=== PATIENT | male | born 1990 | race African-American/Black ===

== ENCOUNTER 2016-07-01 08:31 | Emergency (ER) | payer BC ==
[2016-07-01 08:40] VITALS: BP 127/72; PULSE 76; RESP 16; TEMP 98.1; O2SAT 97
--- NOTE | 2016-07-01 08:52 | EDPHY ---
H & P Stated Complaint: N/V/D since this AM Time Seen by Provider: 07/01/16 08:46 HPI/ROS: CHIEF COMPLAINT: Nausea, vomiting, diarrhea HISTORY OF PRESENT ILLNESS: Patient presents to the ED with a 1 day history of nausea, vomiting and diarrhea. The patient denies significant abdominal pain. The patient denies significant past medical history. The patient denies any antibiotic use or travel outside the [place]. He believes he may have eaten some bad [place] food last night. The patient has no additional complaints of an upper respiratory infection, dysuria or rash. REVIEW OF SYSTEMS: A comprehensive 10 point review of systems is otherwise negative aside from elements mentioned in the history of present illness. Source: Patient Exam Limitations: No limitations - Personal History Current Tetanus/Diphtheria Vaccine: Yes Current Tetanus Diphtheria and Acellular Pertussis (TDAP): Yes - Medical/Surgical History Hx Asthma: Yes Hx Chronic Respiratory Disease: No Hx Diabetes: No Hx Cardiac Disease: No Hx Renal Disease: No Hx Cirrhosis: No Hx Alcoholism: No Hx HIV/AIDS: No Hx Splenectomy or Spleen Trauma: No Other PMH: denies - Social History Smoking Status: Never smoked - Physical Exam Exam: General Appearance: Alert, no distress Eyes: Pupils equal and round no pallor or injection ENT, Mouth: Mucous membranes moist Respiratory: There are no retractions, lungs are clear to auscultation Cardiovascular: Regular rate and rhythm Gastrointestinal: Abdomen is soft and nontender, no masses, bowel sounds normal Neurological: A&O, normal motor function, normal sensory exam, normal cranial nerves Skin: Warm and dry, no rashes Musculoskeletal: Neck is supple nontender Extremities: symmetrical, full range of motion Constitutional: Initial Vital Signs Temperature (C) 36.7 C 07/01/16 08:33 Heart Rate 76 07/01/16 08:33 Respiratory Rate 16 07/01/16 08:33 Blood Pressure 127/72 H 07/01/16 08:33 O2 Sat (%) 97 07/01/16 08:33 O2 Delivery Mode Room Air Allergies/Adverse Reactions: No Known Allergies Allergy (Unverified 07/01/16 08:33) Home Medications: Medication Instructions Recorded Ondansetron Odt [Zofran Odt] 4 mg PO Q4PRN PRN #20 tab 07/01/16 Medical Decision Making ED Course/Re-evaluation: The patient has a benign abdominal examination. He will be given a prescription for Zofran as he presents to the ED with likely gastroenteritis. The patient has no comorbidities. He has nothing to suggest appendicitis. The patient will be instructed to return to the ED for worsening symptoms, the development of more significant abdominal pain or other concerns. Departure - Departure Disposition: Home, Routine, Self-Care Clinical Impression: Acute gastroenteritis Condition: Good Instructions: Gastroenteritis (ED) Additional Instructions: 1. Please take Zofran as needed for nausea. 2. Take Imodium as needed for diarrhea. This is available [id number]. 3. Please return to the ED for any severe pain, worsening symptoms or other concerns as this may be the sign of a more serious condition such as appendicitis. Stand Alone Forms: Work Excuse
== END 2016-07-01 09:04 | disposition home or self-care (01) ==
DX: K52.9 Noninfective gastroenteritis and colitis, unspecified (principal); J45.909 Unspecified asthma, uncomplicated